=== PATIENT | female | born 1965 | race African-American/Black ===

== ENCOUNTER 2022-12-03 11:15 | Emergency (ER) | payer BC ==
[~2022-12-03] VITALS: Ht 172.7 cm; Wt 120.2 kg
[2022-12-03 11:48] LABS: BASOPHILS 0.6 % (0-2); EOSINOPHILS 0.9 % (0-6); HEMATOCRIT 39.9 % (35.0-50.0); HEMOGLOBIN 12.6 g/dL (12.0-18.0); LYMPHOCYTES 21.1 % (24-44); MCH 26.8 (27-36); MCHC 31.6 g/dl (30-36); MCV 84.6 fl (81-99); NEUTROPHILS 69.4 % (39-80); PLATELET COUNT 321 K/uL (140-440); RBC 4.71 M/ul (4.3-5.7); RDW 15.5 (10.5-15.0)
[2022-12-03 12:05] LABS: ACETAMINOPHEN 0 ug/mL (10-30); ALBUMIN 3.4 g/dL (3.4-5.0); ALBUMIN/GLOBULIN RATIO 0.81 (1.1-2.4); ALCOHOL, MEDICAL <3 ng/dL (<3); ALKALINE PHOSPHATASE 112 U/L (46-116); ALT (SGPT) 45 U/L (14-59); ANION GAP 16.1 (7-21); AST (SGOT) 33 U/L (15-37); BUN/CREATININE RATIO 15.74 (6.0-28.6); CALCIUM 8.9 mg/dL (8.5-10.1); CARBON DIOXIDE 24 mmol/L (21-32); CHLORIDE 104 mmol/L (98-107); CREATININE, SERUM 1.08 mg/dL (0.55-1.02); GLOMERULAR FILTRATION RATE,EST 60 mL/min (>60); POTASSIUM 3.1 mmol/L (3.5-5.1); PROTEIN, TOTAL 7.6 g/dL (6.4-8.2); UREA NITROGEN 17 mg/dL (7-18)
[2022-12-03 12:06] LABS: SALICYLATE <0.2 mg/dL (2.8-20.0)
--- OUTSIDE RECORDS SUMMARY | 2022-12-03 12:08 | XMS ---
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 Jose has no Care Guidelines for this patient. Brent VISIT COUNT (12 MO.) 1 [facility] [place] [address] Francisco Javier Liliane TOTAL 2 NOTE: Visits indicate total known visits. ED/UCC VISIT TRACKING (12 MO.) 12/03/2022 11:16 [facility] [place] TYPE: Emergency COMPLAINT: - ALTERED LOC 12/02/2022 03:20 IHC - Francisco Javier MICHELE TYPE: Emergency COMPLAINT: - [facility] mental [facility] INPATIENT VISIT TRACKING (12 MO.) No inpatient visits to display in this time frame [id number]
[2022-12-03 15:44] LABS: BILIRUBIN, URINE POSITIVE (negative); BLOOD/HGB, URINE SMALL (Negative); KETONE, URINE SMALL (Negative); LEUK ESTERASE, URINE NEGATIVE (negative); NITRITE, URINE NEGATIVE (negative)
[2022-12-03 15:54] LABS: BACTERIA, URINE 1+ /hpf (negative); CASTS, URINE NONE SEEN \\lpf; COLLECTION TYPE, URINE CATH; CRYSTALS, URINE NONE SEEN (0-1+); EPITHELIAL CELLS, URINE SQUAMOUS 2+ /lpf (0-1+); REFLEX CULTURE, URINE No (No)
[2022-12-03 15:58] LABS: AMPHETAMINES, URINE NEGATIVE (NEGATIVE); BARBITURATES, URINE NEGATIVE (NEGATIVE); BENZODIAZEPINE, URINE NEGATIVE (NEGATIVE); BUPRENORPHINE, URINE NEGATIVE (NEGATIVE); CANNABINOID, URINE NEGATIVE (NEGATIVE); COCAINE, URINE NEGATIVE (NEGATIVE); ECSTASY, URINE NEGATIVE (NEGATIVE); FENTANYL, URINE NEGATIVE (NEGATIVE); METHADONE, URINE NEGATIVE (NEGATIVE); OPIATES, URINE NEGATIVE (NEGATIVE); OXYCODONE, URINE NEGATIVE (NEGATIVE); PHENCYCLIDINE, URINE NEGATIVE (NEGATIVE)
--- NOTE | 2022-12-03 20:43 | EKG ---
[facility] [address] [facility] [place] [address] Signed Normal sinus rhythm ST \T\ T wave abnormality, consider inferior ischemia Abnormal ECG No previous ECGs available Confirmed by Nicolette Stratton MD () on 12/03/2022 8:42:59 PM Electronically Signed By: NICOLETTE STRATTON MD 12/03/222042 PATIENT NAME: CLARITA PITTS Electrocardiogram DATE OF : 63 PHYSICIAN: NICOLETTE STRATTON MD REPORT #: [id number] REPORT IS CONFIDENTIAL AND NOT TO BE RELEASED WITHOUT AUTHORIZATION
[2022-12-03 21:37] LABS: INFLUENZA B NAA NEGATIVE (NEGATIVE); RESPIRATORY SYNCYTIAL VIR NAA NEGATIVE (NEGATIVE)
[2022-12-03 22:38] VITALS: BP 121/55
== END 2022-12-03 22:20 | disposition short-term general hospital (02) ==
LOC: ED 11:15
PROVIDERS: Emergency Medicine
DX: G93.40 Encephalopathy, unspecified (principal); Z20.822 Contact with and (suspected) exposure to COVID-19
CPT/HCPCS: 36415; 80053; 80307; 81001; 82140; 84443; 85025; 87502; 93005; 93010; C9803; G0480; J2060; J7030; U0002